=== PATIENT | male | born 1965 | race American Indian/Alaskan Native ===

== ENCOUNTER 2020-03-03 04:41 | Emergency (ER) | payer MEDICAID ==
[2020-03-03 05:32] VITALS: BP 150/65
[2020-03-03] MEDS ORDERED: FLUORESCEIN 1 MG STRIP OP ONE (05:48)
[2020-03-03] MEDS ORDERED: BALANCED SALT IRRIG (BSS) OPHTH SOLN 15 ML OU ONE (05:48)
--- NOTE | 2020-03-03 06:07 | Emergency Department Report ---
Eye Injury/Foreign Body - HPI Duration: 1 Day Eye Location: Left Eye Symptoms: Eye Pain: Yes, Blurred Vision: No, Eye Redness: No, Grinding/Hammering Metal: No, Used Eye Protection: No, Contact Lens Use: No, Recalls Injury: No, Photophobia: Yes Other History: The patient was evaluated in the emergency department for symptoms described in the history of present illness. He/she was evaluated in the context of the global COVID-19 pandemic, which necessitated consideration that the patient might be at risk for infection with the virus that causes COVID-19. Institutional protocols and algorithms that pertain to the evaluation of patients at risk for COVID-19 are in a state of rapid change based on information released by regulatory bodies including the CDC and federal and state organizations. These policies and algorithms were followed during the patient's care in the emergency department. Please note that these policies, procedures and recommendations changed on a rapid basis. 54-year-old - [place] male presents to the emergency room for nontraumatic left eye pain and redness for 1 day. Patient denies any use of contacts states that his eye is extremely sensitive to any type of light and when. Patient reports that it has been painful and he has taken a strong Tylenol. Patient reports he has a history of Crohn's disease and suffers from dry eyes. ED Review of Systems ROS: Stated complaint: EYE PROBLEM Other details as noted in HPI ED Past Medical Hx - Past Medical History Previous Medical History?: No - Surgical History Past Surgical History?: No - Social History Smoking Status: Never Smoker Substance Use Type: None - Medications Home Medications: Home Medications Medication Instructions Recorded Confirmed Last Taken Type Erythromycin [Erythromycin Ophth 1 strip OS QID 10 Days #1 tube 03/03/20 Unknown Rx Oint] Ibuprofen [Motrin 600 MG tab] 600 mg PO Q8H PRN #30 tablet 03/03/20 Unknown Rx traMADoL [Ultram 50 MG tab] 50 mg PO Q6HR PRN #12 tablet 03/03/20 Unknown Rx Eye Injury Exam - Exam General: Vital signs noted. No distress. Alert and acting appropriately. - Visual Acuity Left Vision Acuity Degree: 20/40 Eye Exam: Left Injection, Left Fluorescein Uptake, Left Photophobia, Neither EOMI, Neither Eye Foreign Body, Neither Corneal Edema ED Course Vital Signs 03/03/20 05:24 Temperature 98.7 F Pulse Rate 50 L Respiratory 16 Rate Blood Pressure 150/65 O2 Sat by Pulse 98 Oximetry ED Medical Decision Making - Medical Decision Making 54-year-old -[place] male presents to the emergency room for nontraumatic left eye pain and redness for 1 day. Patient denies any use of contacts states that his eye is extremely sensitive to any type of light and when. Patient reports that it has been painful and he has taken a strong Tylenol. Patient reports he has a history of Crohn's disease and suffers from dry eyes. Fluorescein exam shows uptake to the left cornea approximately 6:00. Patient was discharged home on tramadol and ibuprofen erythromycin and a referral to a director work. Expressed to patient is very important for him to follow-up in the next 2 days. Critical care attestation.: If time is entered above; I have spent that time in minutes in the direct care of this critically ill patient, excluding procedure time. ED Disposition Clinical Impression: Corneal abrasion, left Disposition: [id number] TO HOME OR SELFCARE Is pt being admited?: No Does the pt Need Aspirin: No Condition: Stable Instructions: Corneal Abrasion, [id number] Additional Instructions: Please use IV antibiotics as prescribed. Take pain medication as needed. It is very very important for you to follow-up with an director work. I have listed several below for your convenience. Prescriptions: Erythromycin [Erythromycin Ophth Oint] 1 strip OS QID 10 Days #1 tube Ibuprofen [Motrin 600 MG tab] 600 mg PO Q8H PRN #30 tablet PRN Reason: Pain traMADoL [Ultram 50 MG tab] 50 mg PO Q6HR PRN #12 tablet PRN Reason: Pain Referrals: REMY DIAZ MD [Primary Care Provider] - 3-5 Days KENJI PITTS MD [Staff Physician] - 3-5 Days [facility] [place] [Provider Group] - 3-5 Days [facility] [Provider Group] - 3-5 Days
== END 2020-03-03 06:31 | disposition home or self-care (01) ==
LOC: ED 04:41
DX: S05.02XA Injury of conjunctiva and corneal abrasion without foreign body, left eye, initial encounter (principal); X58.XXXA Exposure to other specified factors, initial encounter; Y93.89 Activity, other specified; Y92.89 Other specified places as the place of occurrence of the external cause; Y99.8 Other external cause status
CPT/HCPCS: 99283